=== PATIENT | male | born 1970 | race Caucasian/White ===

== ENCOUNTER 2016-11-25 20:15 | Emergency (ER) | payer SELFPAY ==
[~2016-11-25] VITALS: Ht 167.6 cm; Wt 77.0 kg
[2016-11-25 20:19] VITALS: BP 117/76; PULSE 96; RESP 16; TEMP 99; O2SAT 94
--- NOTE | 2016-11-25 23:13 | PD ---
HPI Chief Complaint: Psychiatric Symptoms Time Seen by Provider: 23:00 Travel History International Travel<30 days: No Contact w/Intl Traveler<30days: No Traveled to known affect area: No History of Present Illness HPI This is a 46-year-old male with history of major depressive disorder, on Paxil, presents voluntarily for psychiatric evaluation. He reports that the past few days he's been feeling increasingly depressed, having suicidal thoughts. Specifically he has thoughts of jumping in front of traffic. He reports that he recently had sexual relations with a man and this has made him feel increasingly depressed and ashamed. He admits to drinking some beer today as well. Denies any drug use. Denies any suicide attempts. Denies having any medical complaints at this time. PFSH Past Medical History Autoimmune Disease: No Anxiety: Yes Depression: Yes Cancer: No Chemotherapy: No Diabetes: No Diminished Hearing: No Heparin Induced Thrombocytopen: No Immune Disorder: No Implanted Vascular Access Dvce: No Psychiatric: Yes (HX OF CUTTING WRIST) Immunizations Current: Yes Radiation Therapy: No Sickle Cell Disease: No Thyroid Disease: No Past Surgical History AICD: No Arteriovenous Shunt: No Insulin Pump: No Joint Replacement: No Pacemaker: No Social History Alcohol Use: Yes (a couple beers, today, trying to quit) Tobacco Use: Yes (1 PPD) Substance Use: No Allergies-Medications (Allergen,Severity, Reaction): Coded Allergies: No Known Allergies (Verified , 11/25/16) Reported Meds & Prescriptions Reported Meds & Active Scripts Active Reported Paxil (Paroxetine HCl) 20 Mg Tab 20 Mg PO DAILY Review of Systems Except as stated in HPI: all other systems reviewed are Neg Physical Exam Narrative GENERAL: This is a well-developed well-nourished male who is initially sleeping but he is easily arousable. SKIN: Warm and dry. HEAD: Atraumatic. Normocephalic. EYES: Pupils equal and round. No scleral icterus. No injection or drainage. ENT: No nasal bleeding or discharge. Mucous membranes pink and moist. NECK: Trachea midline. No JVD. CARDIOVASCULAR: Regular rate and rhythm. No murmur appreciated. RESPIRATORY: No accessory muscle use. Clear to auscultation. Breath sounds equal bilaterally. GASTROINTESTINAL: Abdomen soft, non-tender, nondistended. MUSCULOSKELETAL: No obvious deformities. No edema NEUROLOGICAL: Awake and alert. No obvious cranial nerve deficits. Motor grossly within normal limits. Normal speech. PSYCHIATRIC: Appropriate mood and affect; insight and judgment normal. Data Data Last Documented VS Vital Signs Date Time Temp Pulse Resp B/P Pulse Ox O2 Delivery O2 Flow Rate FiO2 11/26/16 01:11 95 Nasal Cannula 2 11/26/16 01:04 70 16 94/53 11/25/16 20:19 99.0 Orders Complete Blood Count With Diff (11/25/16 22:01) Comprehensive Metabolic Panel (11/25/16 22:01) Drug Screen, Random Urine (11/25/16 22:01) Alcohol (Ethanol) (11/25/16 22:01) Salicylates (Aspirin) (11/25/16 22:01) Tylenol (Acetaminophen) (11/25/16 22:01) Psych Screen (11/25/16 22:01) Labs Laboratory Tests Test 11/25/16 11/25/16 11/26/16 22:01 23:00 01:05 Sodium Level 143 MEQ/L Potassium Level 4.1 MEQ/L Chloride Level 109 MEQ/L Carbon Dioxide Level 23.8 MEQ/L Anion Gap 10 MEQ/L Blood Urea Nitrogen 10 MG/DL Creatinine 1.05 MG/DL Estimat Glomerular Filtration 77 ML/MIN Rate Random Glucose 82 MG/DL Calcium Level 8.7 MG/DL Total Bilirubin 0.3 MG/DL Aspartate Amino Transf 23 U/L (AST/SGOT) Alanine Aminotransferase 27 U/L (ALT/SGPT) Alkaline Phosphatase 60 U/L Total Protein 7.4 GM/DL Albumin 3.7 GM/DL Acetaminophen Level LESS THAN 2.0 MCG/ML Ethyl Alcohol Level 6 MG/DL White Blood Count 8.3 TH/MM3 Red Blood Count 5.05 MIL/MM3 Hemoglobin 16.7 GM/DL Hematocrit 48.5 % Mean Corpuscular Volume 96.0 FL Mean Corpuscular Hemoglobin 33.1 PG Mean Corpuscular Hemoglobin 34.5 % Concent Red Cell Distribution Width 13.0 % Platelet Count 233 TH/MM3 Mean Platelet Volume 9.8 FL Neutrophils (%) (Auto) 50.8 % Lymphocytes (%) (Auto) 39.8 % Monocytes (%) (Auto) 5.2 % Eosinophils (%) (Auto) 2.8 % Basophils (%) (Auto) 1.4 % Neutrophils # (Auto) 4.2 TH/MM3 Lymphocytes # (Auto) 3.3 TH/MM3 Monocytes # (Auto) 0.4 TH/MM3 Eosinophils # (Auto) 0.2 TH/MM3 Basophils # (Auto) 0.1 TH/MM3 CBC Comment DIFF FINAL Differential Comment Salicylates Level 5.4 MG/DL Urine Opiates Screen NEG Urine Barbiturates Screen NEG Urine Amphetamines Screen NEG Urine Benzodiazepines Screen NEG Urine Cocaine Screen NEG Urine Cannabinoids Screen NEG MDM Medical Decision Making Medical Screen Exam Complete: Yes Emergency Medical Condition: Yes Medical Record Reviewed: Yes Differential Diagnosis Adjustment reaction, acute psychosis, major depressive disorder, substance induced mood disorder Narrative Course 46-year-old male with history of depression presents after feeling increasingly depressed and suicidal over the past few days. Mental health screening discussed with the patient. Psychiatric screen ordered. The patient's lab work has been reviewed. He is medically cleared for psychiatric disposition. The patient was seen by the psychiatric screener. The patient has an outpatient appointment with his psychiatrist. He feels comfortable going home and following up with his psychiatrist. He contracts for safety and says that he does not want to hurt himself. The patient will be discharged in the morning. Diagnosis Primary Impression: Depression Qualified Code: F32.9 - Depression, unspecified depression type Referrals: Psychiatrist Additional Instructions: Follow-up with your psychiatrist as scheduled. Return for any new or worsening symptoms. Med/Other Pt SpecificInfo: No Change to Meds Disposition: 01 DISCHARGE HOME Condition: Stable Kit Josue Nov 25, 2016 23:13
[2016-11-25 23:22] LABS: AUTOMATED NEUTROPHIL # 4.2 TH/MM3 (1.8-7.7); BASOPHIL # 0.1 TH/MM3 (0-0.2); BASOPHIL % 1.4 % (0.0-2.0); EOSINOPHIL # 0.2 TH/MM3 (0-0.4); EOSINOPHIL % 2.8 % (0.0-4.0); HEMATOCRIT 48.5 % (39.0-51.0); HEMO FLAGS DIFF FINAL; LYMPH % 39.8 % (9.0-44.0); LYMPHOCYTE # 3.3 TH/MM3 (1.0-4.8); MEAN CORPUSCULAR HEMOGLOBIN 33.1 PG (27.0-34.0); MEAN CORPUSCULAR HGB CONC 34.5 % (32.0-36.0); MONO % 5.2 % (0.0-8.0); NEUT % 50.8 % (16.0-70.0); PLATELET COUNT 233 TH/MM3 (150-450); RED BLOOD COUNT 5.05 MIL/MM3 (4.50-5.90); WHITE BLOOD COUNT 8.3 TH/MM3 (4.0-11.0)
[2016-11-25 23:51] LABS: ALKALINE PHOSPHATASE 60 U/L (45-117); TOTAL BILIRUBIN ADULT 0.3 MG/DL (0.2-1.0)
[2016-11-26 00:28] LABS: ALT (GPT) 27 U/L (12-78); ANION GAP 10 MEQ/L (5-15); AST (GOT) 23 U/L (15-37); BICARBONATE 23.8 MEQ/L (21.0-32.0); BLOOD UREA NITROGEN 10 MG/DL (7-18); CHLORIDE 109 MEQ/L (98-107); GLOMERULAR FILTRATION RATE 77 ML/MIN (>89); SODIUM (NA) 143 MEQ/L (136-145)
[2016-11-26 00:33] LABS: ACETAMINOPHEN LESS THAN 2.0 MCG/ML (10.0-30.0); POTASSIUM 4.1 MEQ/L (3.5-5.1)
[2016-11-26] MEDS ORDERED: PAXI20TA PO (00:40)
[2016-11-26 01:04] VITALS: BP 94/53; PULSE 70; RESP 16; O2SAT 92
[2016-11-26 01:55] LABS: AMPHETAMINE, URINE NEG (NEG); BARBITURATES, URINE NEG (NEG); COCAINE, URINE NEG (NEG)
== END 2016-11-26 06:28 | disposition home or self-care (01) ==
LOC: NEPA 20:15
DX: F17.210 Nicotine dependence, cigarettes, uncomplicated (principal)
CPT/HCPCS: 80053; 80307; 80320; 80329; 85025; G0480

== ENCOUNTER 2017-05-29 08:18 | Day surgery (SDC) | payer OTHER ==
[~2017-05-29] VITALS: Ht 167.6 cm; Wt 87.0 kg
[~2017-05-29 08:18] MED LIST: PAXI20TA PO
[2017-05-29 08:20] VITALS: BP 133/88; PULSE 84; RESP 20; TEMP 98; O2SAT 95
[2017-05-29] MEDS ORDERED: PARO40TA2 PO (08:53)
[2017-05-29] MEDS ORDERED: SERO100T PO (08:53)
--- NOTE | 2017-05-29 09:27 | PD ---
HPI Chief Complaint: Complaint Time Seen by Provider: 09:24 Travel History International Travel<30 days: No Contact w/Intl Traveler<30days: No Traveled to known affect area: No History of Present Illness HPI This is a 47-year-old male who presents today with complaints of penis swelling , dysuria and bloody drainage from the meatus. The patient states he had unprotected sex several days ago when he started noticing this discomfort. He denies any fevers, chills. He denies any abdominal pain. There is no flank pain. There are no other complaints time my examination. PFSH Past Medical History Autoimmune Disease: No Anxiety: Yes Depression: Yes Cancer: No Chemotherapy: No Diabetes: No Diminished Hearing: No Heparin Induced Thrombocytopen: No Immune Disorder: No Implanted Vascular Access Dvce: No Psychiatric: Yes (HX OF CUTTING WRIST) Immunizations Current: Yes Radiation Therapy: No Sickle Cell Disease: No Thyroid Disease: No Tetanus Vaccination: < 5 Years Influenza Vaccination: No Past Surgical History AICD: No Arteriovenous Shunt: No Insulin Pump: No Joint Replacement: No Pacemaker: No Social History Alcohol Use: Yes (a couple beers, today, trying to quit) Tobacco Use: Yes (1 PPD) Substance Use: No Allergies-Medications (Allergen,Severity, Reaction): Coded Allergies: No Known Allergies (Verified , 05/29/17) Reported Meds & Prescriptions Reported Meds & Active Scripts Active Reported Seroquel (Quetiapine Fumarate) 100 Mg Tab 100 Mg PO HS Paroxetine (Paroxetine HCl) 40 Mg Tab 40 Mg PO DAILY Review of Systems Except as stated in HPI: all other systems reviewed are Neg General / Constitutional: No: Fever, Chills Cardiovascular: No: Chest Pain or Discomfort, Palpitations Respiratory: No: Cough, Shortness of Breath Gastrointestinal: No: Nausea, Vomiting Genitourinary: Positive: Dysuria, Discharge (bloody), Other (swelling of his penis) Musculoskeletal: No: Weakness, Pain Neurologic: No: Weakness, Dizziness, Syncope Physical Exam Narrative GENERAL: Well-nourished, well-developed patient in no acute respiratory distress. SKIN: Focused skin assessment warm/dry. HEAD: Normocephalic/atraumatic. EYES: No scleral icterus. No injection or drainage. NECK: Supple, trachea midline. No JVD or lymphadenopathy. CARDIOVASCULAR: Regular rate and rhythm without murmurs, gallops, or rubs. RESPIRATORY: Breath sounds equal bilaterally. No accessory muscle use. GASTROINTESTINAL: Abdomen soft, non-tender, nondistended. GENITOURINARY: Uncircumcised. Testes descended bilaterally without evidence of rotation. Significant swelling at the distal penis. There is no black or blue discoloration. He does have what appears to be paraphimosis. I do not appreciate any hair tourniquets. There is no meatal discharge or blood noted. MUSCULOSKELETAL: No cyanosis, or edema. NEUROLOGICAL: Awake and alert. Cranial nerves II through XII intact. Motor grossly within normal limits. Five out of 5 muscle strength in all muscle groups. Normal speech. Data Data Last Documented VS Vital Signs Date Time Temp Pulse Resp B/P Pulse Ox O2 Delivery O2 Flow Rate FiO2 05/29/17 10:59 60 18 120/74 94 Room Air 05/29/17 08:20 98.0 Orders Urinalysis - C+S If Indicated (05/29/17 09:24) Gc And Chlamydia Pcr (05/29/17 09:24) Labs Laboratory Tests Test 05/29/17 09:00 Urine Color YELLOW Urine Turbidity CLEAR Urine pH 5.5 Urine Specific [place] 1.029 Urine Protein TRACE mg/dL Urine Glucose (UA) NEG mg/dL Urine Ketones NEG mg/dL Urine Occult Blood NEG Urine Nitrite NEG Urine Bilirubin NEG Urine Urobilinogen 2.0 MG/DL Urine Leukocyte Esterase NEG Urine RBC 1 /hpf Urine WBC 1 /hpf Urine Mucus FEW /lpf Urine Sperm RARE Microscopic Urinalysis Comment CULT NOT INDICATED MDM Medical Decision Making Medical Screen Exam Complete: Yes Emergency Medical Condition: Yes Differential Diagnosis Phimosis versus paraphimosis versus hair tourniquet versus urethritis. Narrative Course This is a 47-year-old male who presents with penis swelling and dysuria. The patient states it happened after having intercourse. The patient has paraphimosis. An attempt to reduce was made however he was not able to tolerate secondary to pain. The case was discussed with Dr. Epperson, on-call urologist, who will take him to the operating room to reduce. Discussed with the patient and he is amenable to the plan. He last ate at 10 PM last night. Procedures Procedure Narrative Attempt to reduce the phimosis/paraphimosis was made. The patient was unable to tolerate the gentle squeezing pressure. The attempt was stopped. Diagnosis Primary Impression: Paraphimosis Additional Impression: Dysuria Admitting Information Admitting Physician Requests: Observation Silver Briggs MD May 29, 2017 09:27
[2017-05-29 09:43] LABS: BLOOD, URINE NEG (NEG); COMMENT (UR) CULT NOT INDICATED; CULTURE IF INDICATED CULT NOT INDICATED; GLUCOSE,URINE NEG (NEG); KETONE, URINE NEG (NEG); MUCUS URINE FEW /lpf (OCC); NITRITE,URINE NEG (NEG); PH, URINE 5.5 (5.0-8.5); URINE COLOR YELLOW (YELLW/STRAW)
[2017-05-29 10:59] VITALS: BP 120/74; PULSE 60; RESP 18; O2SAT 94
[2017-05-29] MEDS ORDERED: PROPOFOL 200 MG/20 ML AMP IV ONE (11:15)
[2017-05-29] MEDS ORDERED: ONDANSETRON HCL 4 MG/2 ML VIAL IV PUSH ONE (11:15)
[2017-05-29 12:10] LABS: CHLAMYDIA PCR NOT DETECTED (NOT DETECT); NEISSERIA PCR NOT DETECTED (NOT DETECT)
--- NOTE | 2017-05-29 14:45 | HHI.HP ---
[facility] Service Urology Primary Care Physician No Primary Care Physician Admission Diagnosis paraphimosis Diagnoses: Chief Complaint: Penile swelling History of Present Illness 47-year-old gentleman who presented to the emergency room complaining of penile swelling and dysuria. He reports that he had unprotected sex several days ago and soon thereafter started to develop the symptoms. Preliminary emergency room evaluation was consistent with paraphimosis and an attempt to reduce this was unsuccessful due to patient discomfort. Patient denies any prior episodes of his present symptoms. He denies any significant urologic past medical history. Review of Systems Constitutional: DENIES: Fever, Chills Cardiovascular: DENIES: Chest pain Gastrointestinal: DENIES: Abdominal pain Genitourinary: COMPLAINS OF: Dysuria, DENIES: Penile Discharge Musculoskeletal: DENIES: Back pain Except as stated in HPI: all other systems reviewed are Neg Past Family Social History Past Medical History Depression Past Surgical History Denies major surgery Reported Medications Refer to EMR Allergies: Coded Allergies: No Known Allergies (Verified , 05/29/17) Active Ordered Medications Refer to EMR Family History Reviewed and noncontributory Social History Drinks several beers daily Smoker of one pack per day Denies illicit drug abuse Physical Exam Vital Signs Date Time Temp Pulse Resp B/P Pulse Ox O2 Delivery O2 Flow Rate FiO2 05/29/17 10:59 60 18 120/74 94 Room Air 05/29/17 08:50 78 18 05/29/17 08:20 98.0 84 20 133/88 95 Room Air Physical Exam GENERAL: This is a well-nourished, well-developed patient, in no apparent distress. SKIN: No rashes, ecchymoses or lesions. Cool and dry. HEAD: Atraumatic. Normocephalic. No temporal or scalp tenderness. EYES: Pupils equal round and reactive. Extraocular motions intact. No scleral icterus. No injection or drainage. ENT: Nose without bleeding, purulent drainage or septal hematoma. Throat without erythema, tonsillar hypertrophy or exudate. Uvula midline. Airway patent. NECK: Trachea midline. No JVD or lymphadenopathy. Supple, nontender, no meningeal signs. CARDIOVASCULAR: Regular rate and rhythm without murmurs, gallops, or rubs. RESPIRATORY: Clear to auscultation. Breath sounds equal bilaterally. No wheezes , rales, or rhonchi. GASTROINTESTINAL: Abdomen soft, non-tender, nondistended. No hepato-splenomegaly , or palpable masses. No guarding. GENITOURINARY: Swelling to distal penis consistent with paraphimosis, testes bilaterally descended MUSCULOSKELETAL: Extremities without clubbing, cyanosis, or edema. No joint tenderness, effusion, or edema noted. No calf tenderness. Negative Homans sign bilaterally. NEUROLOGICAL: Awake and alert. Cranial nerves II through XII intact. Motor and sensory grossly within normal limits. Five out of 5 muscle strength in all muscle groups. Normal speech. Laboratory Tests Test 05/29/17 09:00 Urine Color YELLOW Urine Turbidity CLEAR Urine pH 5.5 Urine Specific [place] 1.029 Urine Protein TRACE Urine Glucose (UA) NEG Urine Ketones NEG Urine Occult Blood NEG Urine Nitrite NEG Urine Bilirubin NEG Urine Urobilinogen 2.0 Urine Leukocyte Esterase NEG Urine RBC 1 Urine WBC 1 Urine Mucus FEW Urine Sperm RARE Microscopic Urinalysis Comment CULT NOT INDICATED Chlamydia trachomatis DNA NOT DETECTED (PCR) Neisseria gonorrhoeae DNA NOT DETECTED (PCR) Assessment and Plan Assessment and Plan Urologic impression: Paraphimosis Plan: #1 keep patient nothing by mouth #2 bring the patient to the operating room suite this afternoon for reduction of paraphimosis under anesthesia Valeriy Epperson MD May 29, 2017 14:45
[2017-05-29] MEDS ORDERED: MIDAZOLAM HCL 2 MG/2 ML VIAL ONE (15:20)
--- NOTE | 2017-05-29 16:28 | PD.OP ---
Operative Report Date of Surgery: May 29, 2017 Preoperative Diagnosis: (1) Paraphimosis Postoperative Diagnosis: (1) Paraphimosis Procedure: Reduction of paraphimosis with release of constricting band Anesthesia: General Surgeon: Valeriy Epperson Cigar Head Puncher(s): None Operation and Findings: Indication for procedure: A a pleasant 47 year old gentleman who presented to the emergency room complaining of penile swelling and pain. Preliminary ER evaluation was consistent with paraphimosis and attempts made to reduce this without success. A urology consult was placed for further management. Patient is being brought to the operating room for reduction under anesthesia. Operative procedure in detail: Patient was brought to the operating room suite and placed supine on the OR table. He was then placed under general anesthesia. He was left in the supine position and prepped and draped in normal sterile fashion. After an appropriate timeout was undertaken I proceeded with attempt to manually reduce the paraphimosis however this was unable to be performed due to a very tight constricting band. Most of the penile edema was squeezed out and a small incision was made at the 12 o'clock position to the constricting band for release with a #15 blade. Hemostasis was a competent with the Bovie cautery. Next a dressing was placed consisting of Xeroform followed by Kerlix followed by a Coban wrap. Patient tolerated the procedures without competition sounds transferred to the PACU in satisfactory condition. Valeriy Epperson MD May 29, 2017 16:28
[2017-05-29] MEDS ORDERED: oxyCODONE/ACETAMINOPHEN 5 MG/325 MG TAB PO PRN (16:30)
[2017-05-29] MEDS ORDERED: ONDANSETRON HCL 4 MG/2 ML VIAL IV PUSH PRN (16:30)
[2017-05-29] MEDS ORDERED: PERC5TAB12 PO (16:31)
[2017-05-29] MEDS ORDERED: CIPR-9 PO (16:31)
[2017-05-29 17:30] VITALS: BP 143/90; PULSE 84; RESP 18; TEMP 97.3; O2SAT 95
[2017-05-29] MEDS ORDERED: DO NOT ADM ANY ANTICOAGULANT DRUGS PRN (19:30)
== END 2017-05-29 17:40 | disposition home or self-care (01) ==
LOC: NEPE 08:18 → NEDA 11:09 → HPAC 16:09 → NEPE 17:40
PROVIDERS: ATTEND Urology
DX: N47.2 Paraphimosis (principal); F32.9 Major depressive disorder, single episode, unspecified
CPT/HCPCS: 00920; 54450; 81001; 87491; 87591; 99285; J2250; J2405; J3010

== ENCOUNTER 2017-09-15 02:58 | Emergency (ER) | payer OTHER ==
[~2017-09-15] VITALS: Ht 167.6 cm; Wt 100.0 kg
[~2017-09-15 02:58] MED LIST changes: +CIPR-9 PO; +PARO40TA2 PO; -PAXI20TA PO; +PERC5TAB12 PO; +SERO100T PO
[2017-09-15 03:13] VITALS: BP 135/92; PULSE 106; RESP 14; TEMP 98.2; O2SAT 94
[2017-09-15 03:18] VITALS: BP 135/92; PULSE 100; RESP 14; TEMP 98.2; O2SAT 94
--- NOTE | 2017-09-15 03:41 | PD ---
HPI Chief Complaint: Psychiatric Symptoms Time Seen by Provider: 03:19 Travel History International Travel<30 days: No Contact w/Intl Traveler<30days: No Traveled to known affect area: No History of Present Illness HPI 47-year-old white male presents to emergency department under [place] act by PD. Patient notified PD that he was feeling depressed and having suicidal thoughts. The patient states that he is an alcoholic and had been in rehabilitation at the end of July. Soon after being released he started drinking again. Consumed a large amount of alcohol today. Patient also smokes crack cocaine. He states that he has not smoked in over 24 hours. He denies any toxic ingestions. He denies any active plan on self-harm but states that he feels depressed and has suicidal thoughts. Patient denies any homicidal ideation. He denies any medical complaints. He states that he does suffer from mental illness and has been compliant with his medications. PFSH Past Medical History Narrative Medical Anxiety, depression, alcoholism, substance abuse Autoimmune Disease: No Anxiety: Yes Depression: Yes Cancer: No Chemotherapy: No Diabetes: No Diminished Hearing: No Heparin Induced Thrombocytopen: No Immune Disorder: No Implanted Vascular Access Dvce: No Psychiatric: Yes (HX OF CUTTING WRIST) Immunizations Current: Yes Radiation Therapy: No Sickle Cell Disease: No Thyroid Disease: No Tetanus Vaccination: < 5 Years Past Surgical History Surgical History: No Previous Surgery AICD: No Arteriovenous Shunt: No Insulin Pump: No Joint Replacement: No Pacemaker: No Social History Alcohol Use: Yes (daily beer) Tobacco Use: Yes (1 PPD) Substance Use: Yes (crack) Allergies-Medications (Allergen,Severity, Reaction): Coded Allergies: No Known Allergies (Verified , 09/15/17) Reported Meds & Prescriptions Reported Meds & Active Scripts Active Reported Seroquel (Quetiapine Fumarate) 100 Mg Tab 200 Mg PO HS Review of Systems General / Constitutional: No: Fever Eyes: No: Visual changes HENT: No: Headaches Cardiovascular: No: Chest Pain or Discomfort Respiratory: No: Shortness of Breath Gastrointestinal: No: Abdominal Pain Genitourinary: No: Dysuria Musculoskeletal: No: Pain Skin: No Rash Neurologic: No: Weakness Psychiatric: Positive: Depression, Suicidal Ideations, Mood Disorder, Substance Abuse, No: Anxiety, Disorder of Thought, Homicidal Ideation Endocrine: No: Polydipsia Hematologic/Lymphatic: No: Easy Bruising Physical Exam Narrative GENERAL: Well-nourished, well-developed patient. SKIN: Warm and dry. HEAD: Normocephalic and atraumatic. EYES: No scleral icterus. No injection or drainage. ENT: No nasal drainage noted. Mucous membranes pink. Airway patent. NECK: Supple, trachea midline. Moves head freely without obvious discomfort. CARDIOVASCULAR: Regular rate and rhythm without murmurs, gallops, or rubs. RESPIRATORY: Breath sounds equal bilaterally. No accessory muscle use. GASTROINTESTINAL: Abdomen soft, non-tender, nondistended. EXTREMITIES: No cyanosis or edema. BACK: Nontender without obvious deformity. No CVA tenderness. NEURO: Patient is alert and oriented. no sensorimotor deficits. Nonfocal. Normal speech. PSYCH: No delusions. No auditory or visual hallucinations. Data Data Last Documented VS Vital Signs Date Time Temp Pulse Resp B/P (MAP) Pulse Ox O2 Delivery O2 Flow Rate FiO2 09/15/17 03:18 98.2 100 14 135/92 (106) 94 Room Air Orders Orders Complete Blood Count With Diff (09/15/17 03:33) Comprehensive Metabolic Panel (09/15/17 03:33) Psych Screen (09/15/17 03:33) Drug Screen, Random Urine (09/15/17 03:33) Alcohol (Ethanol) (09/15/17 03:33) Labs Laboratory Tests Test 09/15/17 03:42 09/15/17 03:50 White Blood Count 8.0 TH/MM3 Red Blood Count 4.73 MIL/MM3 Hemoglobin 15.7 GM/DL Hematocrit 45.5 % Mean Corpuscular Volume 96.1 FL Mean Corpuscular Hemoglobin 33.1 PG Mean Corpuscular Hemoglobin Concent 34.5 % Red Cell Distribution Width 13.2 % Platelet Count 291 TH/MM3 Mean Platelet Volume 8.7 FL Neutrophils (%) (Auto) 53.3 % Lymphocytes (%) (Auto) 36.8 % Monocytes (%) (Auto) 6.0 % Eosinophils (%) (Auto) 1.5 % Basophils (%) (Auto) 2.4 % Neutrophils # (Auto) 4.3 TH/MM3 Lymphocytes # (Auto) 2.9 TH/MM3 Monocytes # (Auto) 0.5 TH/MM3 Eosinophils # (Auto) 0.1 TH/MM3 Basophils # (Auto) 0.2 TH/MM3 CBC Comment DIFF FINAL Differential Comment Blood Urea Nitrogen 7 MG/DL Creatinine 1.12 MG/DL Random Glucose 94 MG/DL Total Protein 8.1 GM/DL Albumin 3.9 GM/DL Calcium Level 8.6 MG/DL Alkaline Phosphatase 65 U/L Aspartate Amino Transf (AST/SGOT) 27 U/L Alanine Aminotransferase (ALT/SGPT) 34 U/L Total Bilirubin 0.4 MG/DL Sodium Level 141 MEQ/L Potassium Level 3.5 MEQ/L Chloride Level 108 MEQ/L Carbon Dioxide Level 22.1 MEQ/L Anion Gap 11 MEQ/L Estimat Glomerular Filtration Rate 71 ML/MIN Ethyl Alcohol Level 227 MG/DL Urine Opiates Screen NEG Urine Barbiturates Screen NEG Urine Amphetamines Screen NEG Urine Benzodiazepines Screen NEG Urine Cocaine Screen NEG Urine Cannabinoids Screen NEG MDM Medical Decision Making Medical Screen Exam Complete: Yes Emergency Medical Condition: Yes Medical Record Reviewed: Yes Interpretation(s) Laboratory Tests Test 09/15/17 03:42 09/15/17 03:50 White Blood Count 8.0 TH/MM3 Red Blood Count 4.73 MIL/MM3 Hemoglobin 15.7 GM/DL Hematocrit 45.5 % Mean Corpuscular Volume 96.1 FL Mean Corpuscular Hemoglobin 33.1 PG Mean Corpuscular Hemoglobin Concent 34.5 % Red Cell Distribution Width 13.2 % Platelet Count 291 TH/MM3 Mean Platelet Volume 8.7 FL Neutrophils (%) (Auto) 53.3 % Lymphocytes (%) (Auto) 36.8 % Monocytes (%) (Auto) 6.0 % Eosinophils (%) (Auto) 1.5 % Basophils (%) (Auto) 2.4 % Neutrophils # (Auto) 4.3 TH/MM3 Lymphocytes # (Auto) 2.9 TH/MM3 Monocytes # (Auto) 0.5 TH/MM3 Eosinophils # (Auto) 0.1 TH/MM3 Basophils # (Auto) 0.2 TH/MM3 CBC Comment DIFF FINAL Differential Comment Blood Urea Nitrogen 7 MG/DL Creatinine 1.12 MG/DL Random Glucose 94 MG/DL Total Protein 8.1 GM/DL Albumin 3.9 GM/DL Calcium Level 8.6 MG/DL Alkaline Phosphatase 65 U/L Aspartate Amino Transf (AST/SGOT) 27 U/L Alanine Aminotransferase (ALT/SGPT) 34 U/L Total Bilirubin 0.4 MG/DL Sodium Level 141 MEQ/L Potassium Level 3.5 MEQ/L Chloride Level 108 MEQ/L Carbon Dioxide Level 22.1 MEQ/L Anion Gap 11 MEQ/L Estimat Glomerular Filtration Rate 71 ML/MIN Ethyl Alcohol Level 227 MG/DL Urine Opiates Screen NEG Urine Barbiturates Screen NEG Urine Amphetamines Screen NEG Urine Benzodiazepines Screen NEG Urine Cocaine Screen NEG Urine Cannabinoids Screen NEG Differential Diagnosis MDM: High Differential diagnoses: Schizophrenia, schizoaffective disorder, bipolar, anxiety, depression, adjustment reaction, mood disorder NOS, ODD, depressive disorder NOS, dementia, dementia with agitation, psychosis NOS, substance induced mood disorder, DMDD, Asperger syndrome, infection,electrolyte abnormality, malingering. Narrative Course Mental health screening discussed with the patient. Psychiatric screen ordered. The patient medically cleared. This is alcohol induced mood disorder, substance abuse Diagnosis Primary Impression: Alcohol abuse with alcohol-induced mood disorder Additional Impression: Substance abuse Condition: Stable Aguila Zacarias Sep 15, 2017 03:41
[2017-09-15 04:05] LABS: AUTOMATED NEUTROPHIL # 4.3 TH/MM3 (1.8-7.7); BASOPHIL # 0.2 TH/MM3 (0-0.2); BASOPHIL % 2.4 % (0.0-2.0); EOSINOPHIL # 0.1 TH/MM3 (0-0.4); EOSINOPHIL % 1.5 % (0.0-4.0); HEMATOCRIT 45.5 % (39.0-51.0); HEMOGLOBIN 15.7 GM/DL (13.0-17.0); LYMPH % 36.8 % (9.0-44.0); LYMPHOCYTE # 2.9 TH/MM3 (1.0-4.8); MEAN CELL VOLUME 96.1 FL (80.0-100.0); MEAN CORPUSCULAR HEMOGLOBIN 33.1 PG (27.0-34.0); MEAN CORPUSCULAR HGB CONC 34.5 % (32.0-36.0); MEAN PLATELET VOLUME 8.7 FL (7.0-11.0); MONOCYTE # 0.5 TH/MM3 (0-0.9); NEUT % 53.3 % (16.0-70.0); PLATELET COUNT 291 TH/MM3 (150-450); RED BLOOD COUNT 4.73 MIL/MM3 (4.50-5.90); RED CELL DISTRIBUTION WIDTH 13.2 % (11.6-17.2)
[2017-09-15 04:37] LABS: ALKALINE PHOSPHATASE 65 U/L (45-117); TOTAL BILIRUBIN ADULT 0.4 MG/DL (0.2-1.0); TOTAL PROTEIN 8.1 GM/DL (6.4-8.2)
[2017-09-15 04:38] LABS: ALBUMIN 3.9 GM/DL (3.4-5.0); ALT (GPT) 34 U/L (12-78); AST (GOT) 27 U/L (15-37); BICARBONATE 22.1 MEQ/L (21.0-32.0); BLOOD UREA NITROGEN 7 MG/DL (7-18); CALCIUM 8.6 MG/DL (8.5-10.1); CHLORIDE 108 MEQ/L (98-107); CREATININE 1.12 MG/DL (0.60-1.30); GLOMERULAR FILTRATION RATE 71 ML/MIN (>89); GLUCOSE,RANDOM 94 MG/DL (74-106); SODIUM (NA) 141 MEQ/L (136-145)
[2017-09-15 08:14] VITALS: BP 127/85; PULSE 73; RESP 18; O2SAT 95
--- NOTE | 2017-09-15 13:08 | PD ---
History of Present Illness Chief Complaint: Psychiatric Symptoms Time Seen by Provider: 12:45 Travel History International Travel<30 Days: No Contact w/Intl Traveler<30days: No Known affected area: No Legal Status Legal Status: Duenas Act Duenas Act Signed By: Adriana White Duenas Act Comment: [facility] Radha Herbert #[id number]. History of Present Illness: 47-year-old male presents under a Duenas act after another alcoholic binge since discharge from a rehabilitation facility in July of this year. Patient also admits to smoking crack cocaine. Patient is currently wanting treatment for his alcoholism and he is willing to go to [facility] voluntarily for such. He reports no suicidal or homicidal ideation, plan or intent. He demonstrates no psychotic thinking and his cognition is intact. Patient is felt to be manipulative with regard to his alcoholism and drug abuse as well as associated claims of depression and suicidality. However, as he is currently wanting treatment for his alcohol and drug abuse, and willing to accept treatment, this physician does not feel he meets criteria for Duenas act or involuntary psychiatric hospitalization. PFSH Past Medical History Autoimmune Disease: No Anxiety: Yes Depression: Yes Cancer: No Chemotherapy: No Diabetes: No Diminished Hearing: No Heparin Induced Thrombocytopen: No Immune Disorder: No Implanted Vascular Access Dvce: No Psychiatric: Yes (HX OF CUTTING WRIST) Immunizations Current: Yes Radiation Therapy: No Sickle Cell Disease: No Thyroid Disease: No Tetanus Vaccination: < 5 Years Past Surgical History Surgical History: No Previous Surgery AICD: No Arteriovenous Shunt: No Insulin Pump: No Joint Replacement: No Pacemaker: No Psychiatric History Psychiatric History Hx Psychiatric Treatment: Per pt, he began seeing psychiatric treatment at age 21. Stated that he was diagnosed with Deprsesion. Per pt, he is treated outpatient at [facility] on [address] Stated that he was last seen there approx 3 weeks ago. Stated that he is prescribed Seroquel and Effexor. Stated that he is compliant with his meds. Reports Hx of treatment at [facility] approx 5 mons ago and [facility] approx 1 yr ago. This physician feels the patient's "depression" is the direct result of his circumstances, including alcohol and crack cocaine use. Therefore, the primary treatment remains alcohol and drug detox/rehabilitation. History of Inpatient Treatment: Yes Guns or firearms in home: No Social History Hx Alcohol Use: Yes (daily beer) Hx Tobacco Use: Yes (1 PPD) Hx Substance Use: Yes Substance Use Type: Alcohol Other Substances Used: Used marjiuana and cocaine in his 20's Hx of Substance Use Treatment: Yes Allergies-Medications (Allergen,Severity, Reaction): Coded Allergies: No Known Allergies (Verified , 09/15/17) Reported Meds & Prescriptions Reported Meds & Active Scripts Active Reported Seroquel (Quetiapine Fumarate) 100 Mg Tab 200 Mg PO HS Review of Systems Psychiatric: COMPLAINS OF: Depression Except as stated in HPI: all other systems reviewed are Neg Mental Status Examination Appearance: Appropriate Consciousness: Alert Orientation: x4 Motor Activity: Normal gait Speech: Unremarkable Language: Adequate Fund of Knowledge: Adequate Attention and Concentration: Adequate Memory: Unremarkable Mood: Sad Affect: Blunt Thought Process & Associations: Intact Thought Content: Appropriate Hallucination Type: None Delusion Type: None Suicidal Ideation: No Suicidal Plan: No Suicidal Intention: No Homicidal Ideation: No Homicidal Plan: No Homicidal Intention: No Insight: Adequate Judgment: Adequate MDM Medical Decision Making Medical Record Reviewed: Yes Assessment/Plan Patient interviewed at bedside, medical record reviewed and case discussed with nurse Fernández. Patient does not meet criteria for Duenas act or involuntary psychiatric hospitalization. His primary problem remains drug and alcohol abuse. This physician is recommending we find some method of transportation so that the patient can go to [facility]. The patient has a much better chance of being admitted there if he presents himself in their lobby, voluntarily seeking treatment for same. Orders Orders Complete Blood Count With Diff (09/15/17 03:33) Comprehensive Metabolic Panel (09/15/17 03:33) Psych Screen (09/15/17 03:33) Drug Screen, Random Urine (09/15/17 03:33) Alcohol (Ethanol) (09/15/17 03:33) Diet Regular Basic (09/15/17 Breakfast) Results Vital Signs Date Time Temp Pulse Resp B/P (MAP) Pulse Ox O2 Delivery O2 Flow Rate FiO2 09/15/17 13:01 09/15/17 09:11 09/15/17 08:14 73 18 127/85 (99) 95 Room Air 09/15/17 03:18 98.2 100 14 135/92 (106) 94 Room Air 09/15/17 03:13 98.2 106 14 135/92 (106) 94 Laboratory Tests Test 09/15/17 03:42 09/15/17 03:50 White Blood Count 8.0 Red Blood Count 4.73 Hemoglobin 15.7 Hematocrit 45.5 Mean Corpuscular Volume 96.1 Mean Corpuscular Hemoglobin 33.1 Mean Corpuscular Hemoglobin Concent 34.5 Red Cell Distribution Width 13.2 Platelet Count 291 Mean Platelet Volume 8.7 Neutrophils (%) (Auto) 53.3 Lymphocytes (%) (Auto) 36.8 Monocytes (%) (Auto) 6.0 Eosinophils (%) (Auto) 1.5 Basophils (%) (Auto) 2.4 Neutrophils # (Auto) 4.3 Lymphocytes # (Auto) 2.9 Monocytes # (Auto) 0.5 Eosinophils # (Auto) 0.1 Basophils # (Auto) 0.2 CBC Comment DIFF FINAL Differential Comment Blood Urea Nitrogen 7 Creatinine 1.12 Random Glucose 94 Total Protein 8.1 Albumin 3.9 Calcium Level 8.6 Alkaline Phosphatase 65 Aspartate Amino Transf (AST/SGOT) 27 Alanine Aminotransferase (ALT/SGPT) 34 Total Bilirubin 0.4 Sodium Level 141 Potassium Level 3.5 Chloride Level 108 Carbon Dioxide Level 22.1 Anion Gap 11 Estimat Glomerular Filtration Rate 71 Ethyl Alcohol Level 227 Urine Opiates Screen NEG Urine Barbiturates Screen NEG Urine Amphetamines Screen NEG Urine Benzodiazepines Screen NEG Urine Cocaine Screen NEG Urine Cannabinoids Screen NEG Diagnosis Primary Impression: Alcohol abuse Additional Impression: Cocaine abuse Condition: Stable Problem Qualifiers Les Groves MD Sep 15, 2017 13:08
--- NOTE | 2017-09-15 13:24 | PD ---
Physical Exam Narrative Patient was medically cleared by ED physician. Patient was seen by psychiatric team this morning. Data Data Last Documented VS Vital Signs Date Time Temp Pulse Resp B/P (MAP) Pulse Ox O2 Delivery O2 Flow Rate FiO2 09/15/17 13:01 09/15/17 08:14 73 18 95 Room Air 09/15/17 03:18 98.2 Orders Orders Complete Blood Count With Diff (09/15/17 03:33) Comprehensive Metabolic Panel (09/15/17 03:33) Psych Screen (09/15/17 03:33) Drug Screen, Random Urine (09/15/17 03:33) Alcohol (Ethanol) (09/15/17 03:33) Diet Regular Basic (09/15/17 Breakfast) Ed Discharge Order (09/15/17 13:22) Labs Laboratory Tests Test 09/15/17 03:42 09/15/17 03:50 White Blood Count 8.0 TH/MM3 Red Blood Count 4.73 MIL/MM3 Hemoglobin 15.7 GM/DL Hematocrit 45.5 % Mean Corpuscular Volume 96.1 FL Mean Corpuscular Hemoglobin 33.1 PG Mean Corpuscular Hemoglobin Concent 34.5 % Red Cell Distribution Width 13.2 % Platelet Count 291 TH/MM3 Mean Platelet Volume 8.7 FL Neutrophils (%) (Auto) 53.3 % Lymphocytes (%) (Auto) 36.8 % Monocytes (%) (Auto) 6.0 % Eosinophils (%) (Auto) 1.5 % Basophils (%) (Auto) 2.4 % Neutrophils # (Auto) 4.3 TH/MM3 Lymphocytes # (Auto) 2.9 TH/MM3 Monocytes # (Auto) 0.5 TH/MM3 Eosinophils # (Auto) 0.1 TH/MM3 Basophils # (Auto) 0.2 TH/MM3 CBC Comment DIFF FINAL Differential Comment Blood Urea Nitrogen 7 MG/DL Creatinine 1.12 MG/DL Random Glucose 94 MG/DL Total Protein 8.1 GM/DL Albumin 3.9 GM/DL Calcium Level 8.6 MG/DL Alkaline Phosphatase 65 U/L Aspartate Amino Transf (AST/SGOT) 27 U/L Alanine Aminotransferase (ALT/SGPT) 34 U/L Total Bilirubin 0.4 MG/DL Sodium Level 141 MEQ/L Potassium Level 3.5 MEQ/L Chloride Level 108 MEQ/L Carbon Dioxide Level 22.1 MEQ/L Anion Gap 11 MEQ/L Estimat Glomerular Filtration Rate 71 ML/MIN Ethyl Alcohol Level 227 MG/DL Urine Opiates Screen NEG Urine Barbiturates Screen NEG Urine Amphetamines Screen NEG Urine Benzodiazepines Screen NEG Urine Cocaine Screen NEG Urine Cannabinoids Screen NEG MDM Supervised Visit with VIKASH: No Narrative Course Patient was medically cleared by ED physician. Patient was seen by psychiatric team and cleared to be discharged. Diagnosis Primary Impression: Alcohol abuse Additional Impression: Cocaine abuse Patient Instructions: General Instructions Departure Forms: Tests/Procedures Med/Other Pt SpecificInfo: No Change to Meds Disposition: 01 DISCHARGE HOME Condition: Stable Bobby Rutledge MD Sep 15, 2017 13:24
== END 2017-09-15 13:27 | disposition home or self-care (01) ==
LOC: NEPD 02:58
DX: F10.10 Alcohol abuse, uncomplicated (principal); F14.10 Cocaine abuse, uncomplicated; F17.210 Nicotine dependence, cigarettes, uncomplicated; F41.9 Anxiety disorder, unspecified; F32.9 Major depressive disorder, single episode, unspecified; R45.851 Suicidal ideations
CPT/HCPCS: 80053; 80307; 85025; 99284